=== PATIENT | female | born 1960 | race Caucasian/White ===

== ENCOUNTER 2021-12-08 01:26 | Emergency (ER) | payer MEDICAID ==
[~2021-12-08] VITALS: Ht 152.4 cm; Wt 63.5 kg
[2021-12-08 01:40] VITALS: BP_SYST 171
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
[2021-12-08] MEDS ORDERED: NITROGLYCERIN 1 INCH (GM) OINT. TD ONE (01:45)
[2021-12-08] MEDS ORDERED: ASPIRIN 325 MG TABLET PO ONE (01:45)
[2021-12-08 02:15] LABS: BASOPHILS # (AUTO) 0.1 K/uL (0.0-0.2); BASOPHILS % (AUTO) 0.6 % (0.0-2.0); EOSINOPHILS # (AUTO) 0.1 K/uL (0.0-0.4); EOSINOPHILS % (AUTO) 0.6 % (0.0-4.0); HEMATOCRIT 39.5 % (36-48); HEMOGLOBIN 13.4 g/dL (12.0-16.0); LYMPHOCYTES % (AUTO) 20.9 % (20.5-51.5); MEAN CORPUSCULAR HEMOGLOBIN 31 pg (27-31); MEAN CORPUSCULAR HGB CONC 34 % (32-36); MEAN CORPUSCULAR VOLUME 93 fL (79.0-98.0); MONOCYTES # (AUTO) 0.7 K/uL (0.0-1.0); MONOCYTES % (AUTO) 7.3 % (1.7-9.3); NEUTROPHILS # (AUTO) 6.7 K/uL (1.8-7.7); NEUTROPHILS % (AUTO) 70.6 % (40.0-70.0); PLATELET COUNT (AUTO) 216 K/uL (130-430); RED BLOOD CELL COUNT(AUTO) 4.26 MIL/uL (4.2-6.2); WHITE BLOOD COUNT (AUTO) 9.5 K/uL (4.8-10.8)
[2021-12-08 02:37] LABS: ANION GAP 9 (5-15); CALCIUM 8.8 mg/dL (8.4-11.0); CHLORIDE 101 mmol/L (98-107); CREATININE 0.72 mg/dL (0.55-1.30); GLUCOSE 138 mg/dL (70-99); POTASSIUM 3.3 mmol/L (3.5-5.1); SODIUM SERUM 139 mmol/L (136-145); UREA NITROGEN, BLOOD 10 mg/dL (8-21)
[2021-12-08 02:48] LABS: ALANINE AMINOTRANSFERASE 26 U/L (12-78); ALBUMIN 3.7 g/dL (3.4-4.8); ASPARTATE AMINOTRANSFERASE 20 U/L (10-37); TOTAL BILIRUBIN 0.3 mg/dL (0.0-1.0)
[2021-12-08 02:54] LABS: GFR AFRICAN AMERICAN 106 mL/min (>90)
[2021-12-08] MEDS ORDERED: NITROGLYCERIN 1 INCH (GM) OINT. ONE (03:48)
--- NOTE | 2021-12-08 04:06 | NUR ---
Patient to ER bed 02 to gown for evaluation. Side rails up.
--- NOTE | 2021-12-08 04:15 | NUR ---
Dr. Vallejo at bedside for evaluation.
[2021-12-08] MEDS ORDERED: MAG-AL HYDROX/SIMETH 30 ML UDC PO ONE (04:30)
[2021-12-08] MEDS ORDERED: LIDOCAINE VISCOUS 2%, 15 ML UDC MM ONE (04:30)
[2021-12-08] MEDS ORDERED: PRO40 PO (05:23)
[2021-12-08] MEDS ORDERED: METO-290 PO (05:23)
[2021-12-08 06:05] VITALS: BP_SYST 129
--- NOTE | 2021-12-08 06:05 | NUR ---
Patient given written and verbal discharge instructions and verbalizes understanding. ER Dr. Vallejo discussed with patient the results and treatment provided. Patient in stable condition. ID arm band removed. Educated on pain management and to follow up with PMD. Pain Scale 0. Opportunity for questions provided and answered. Medication side effect fact sheet provided.
== END 2021-12-08 06:05 | disposition home or self-care (01) ==
LOC: SED 01:26
DX: K21.9 Gastro-esophageal reflux disease without esophagitis (principal); R07.9 Chest pain, unspecified; R42 Dizziness and giddiness; R11.2 Nausea with vomiting, unspecified; I10 Essential (primary) hypertension; Z79.899 Other long term (current) drug therapy
CPT/HCPCS: 99285; 71045; 80053; 83880; 85025; 84484; 36415; 93005; J2001

== ENCOUNTER 2023-08-07 15:17 | Emergency (ER) | payer MEDICAID ==
[~2023-08-07] VITALS: Ht 162.6 cm; Wt 61.2 kg
[~2023-08-07 15:17] MED LIST: METO-290 PO; PRO40 PO
[2023-08-07 15:45] VITALS: BP_SYST 152; PULSE 67; RESP 14; TEMP 97.7; O2SAT 97
[2023-08-07] MEDS ORDERED: ANURH RC (18:20)
[2023-08-07 18:30] VITALS: BP_SYST 142; PULSE 76; RESP 17; TEMP 97.1; O2SAT 98
== END 2023-08-07 18:30 | disposition home or self-care (01) ==
LOC: SED 15:17
DX: K64.9 Unspecified hemorrhoids (principal); I10 Essential (primary) hypertension; Z79.899 Other long term (current) drug therapy
CPT/HCPCS: 99282; 99283